=== PATIENT | male | born 1985 | race African-American/Black ===

== ENCOUNTER 2019-06-19 03:04 | Emergency (ER) | payer MEDICAID ==
[~2019-06-19] VITALS: Ht 182.9 cm; Wt 87.0 kg
[~2019-06-19 03:04] MED LIST: ALBU25PO2; SERT50TA PO; TRAZ-213 PO
[2019-06-19 04:58] LABS: EOSINOPHILS % 2.1 % (0.0-5.0); HEMATOCRIT. 44.3 % (42.0-52.0); HEMOGLOBIN. 14.7 g/dL (14.0-18.0); LYMPHOCYTES % 18.1 % (20.0-50.0); MEAN CORPUSCULAR HEMOGLOBIN 28.5 pg (28.0-32.0); MEAN CORPUSCULAR VOLUME 85.6 fL (80.0-94.0); MEAN PLATELET VOLUME 10.4 fl (7.4-10.4); NEUTROPHILS % 70.8 % (40.0-76.0); PLATELET 168 x1000/uL (130-400); RED BLOOD CELL COUNT 5.17 mill/uL (4.7-6.1); RED CELL DISTRIBUTION WIDTH 14.6 % (11.6-14.6)
[2019-06-19 05:02] LABS: CHLORIDE 111 mEq/L (98-107)
[2019-06-19] MEDS ORDERED: SODIUM CHLORIDE 0.9% 1,000 ML IV ONE (05:36)
[2019-06-19 09:30] VITALS: BP 124/98
== END 2019-06-19 10:59 | disposition home or self-care (01) ==
LOC: ER 03:04
DX: R07.89 Other chest pain (principal); J45.909 Unspecified asthma, uncomplicated; F12.10 Cannabis abuse, uncomplicated; Z79.899 Other long term (current) drug therapy
CPT/HCPCS: 36415; 71045; 71275; 80053; 84484; 85025; 85379; 93005; 99284; J7030

== ENCOUNTER 2019-07-13 18:49 | Emergency (ER) | payer MEDICAID ==
[~2019-07-13] VITALS: Ht 182.9 cm; Wt 100.0 kg
[2019-07-14] MEDS ORDERED: HYDROCODONE/ACETAMINOPHEN 5/325MG TABLET PO ONE (00:15)
[2019-07-14 01:15] LABS: BASOPHILS % 0.9 % (0.0-2.0); EOSINOPHILS % 2.2 % (0.0-5.0); HEMATOCRIT. 42.8 % (42.0-52.0); HEMOGLOBIN. 14.5 g/dL (14.0-18.0); LYMPHOCYTES % 16.2 % (20.0-50.0); MEAN CORPUSCULAR HEMOGLOBIN 29.2 pg (28.0-32.0); MONOCYTES % 10.7 % (2.0-8.0); PLATELET 127 x1000/uL (130-400); RED BLOOD CELL COUNT 4.98 mill/uL (4.7-6.1); RED CELL DISTRIBUTION WIDTH 14.9 % (11.6-14.6)
[2019-07-14] MEDS ORDERED: KETOROLAC 15MG/ML VIAL IV ONE (01:15)
[2019-07-14 01:18] LABS: CHLORIDE 104 mEq/L (98-107)
[2019-07-14] MEDS ORDERED: POTASSIUM CHLORIDE 20MEQ TABLET SR PO NR (02:00)
[2019-07-14 02:33] VITALS: BP 149/98
== END 2019-07-14 08:07 | disposition home or self-care (01) ==
LOC: ER 07-14 07:22
DX: M25.571 Pain in right ankle and joints of right foot (principal); J45.909 Unspecified asthma, uncomplicated; F31.9 Bipolar disorder, unspecified; F12.10 Cannabis abuse, uncomplicated; F10.20 Alcohol dependence, uncomplicated; Y90.9 Presence of alcohol in blood, level not specified
CPT/HCPCS: 36415; 73610; 73630; 80053; 85025; 85651; 86140; 96374; 99284; J1885; Z7610

== ENCOUNTER 2019-07-17 18:07 | Emergency (ER) | payer MEDICAID ==
[~2019-07-17] VITALS: Ht 177.8 cm; Wt 81.0 kg
[2019-07-17 19:04] VITALS: BP 133/75
== END 2019-07-17 20:34 | disposition left against medical advice (07) ==
LOC: ER 18:07
DX: M25.561 Pain in right knee (principal); Z53.21 Procedure and treatment not carried out due to patient leaving prior to being seen by health care provider

== ENCOUNTER 2019-07-22 13:33 | Emergency (ER) | payer MEDICAID ==
[~2019-07-22] VITALS: Ht 182.9 cm; Wt 90.0 kg
[2019-07-22] MEDS ORDERED: LORAZEPAM 1MG TABLET PO ONE (15:15)
[2019-07-22] MEDS ORDERED: ONDANSETRON 4MG ODT PO ONE (15:15)
[2019-07-22 17:33] VITALS: BP 159/119
== END 2019-07-22 17:44 | disposition home or self-care (01) ==
LOC: ER 13:33
DX: F10.239 Alcohol dependence with withdrawal, unspecified (principal); F10.229 Alcohol dependence with intoxication, unspecified; F32.9 Major depressive disorder, single episode, unspecified; J45.909 Unspecified asthma, uncomplicated; K76.0 Fatty (change of) liver, not elsewhere classified; F12.10 Cannabis abuse, uncomplicated; Y90.9 Presence of alcohol in blood, level not specified
CPT/HCPCS: 99283; Q0162; Z7610

== ENCOUNTER 2019-08-03 20:23 | Emergency (ER) | payer MEDICAID ==
[~2019-08-03] VITALS: Ht 182.9 cm; Wt 82.0 kg
[2019-08-03 23:10] LABS: BASOPHILS % 1.4 % (0.0-2.0); EOSINOPHILS % 2.7 % (0.0-5.0); HEMATOCRIT. 42.2 % (42.0-52.0); HEMOGLOBIN. 14.2 g/dL (14.0-18.0); LYMPHOCYTES % 20.5 % (20.0-50.0); MEAN CORPUSCULAR HEMOGLOBIN 28.2 pg (28.0-32.0); MEAN CORPUSCULAR VOLUME 83.8 fL (80.0-94.0); MEAN PLATELET VOLUME 8.6 fl (7.4-10.4); MONOCYTES % 7.3 % (2.0-8.0); NEUTROPHILS % 68.1 % (40.0-76.0); PLATELET 178 x1000/uL (130-400); RED BLOOD CELL COUNT 5.03 mill/uL (4.7-6.1); RED CELL DISTRIBUTION WIDTH 15.6 % (11.6-14.6)
[2019-08-03 23:15] LABS: CHLORIDE 109 mEq/L (98-107)
[2019-08-03 23:19] LABS: ETHANOL BLOOD 257 mg/dL
[2019-08-04 00:42] LABS: CLARITY URINE CLEAR (CLEAR); COLOR URINE YELLOW (YELLOW); KETONES URINE TRACE (NEGATIVE); LEUKOCYTE ESTERASE URINE TRACE (NEGATIVE); NITRITE URINE NEGATIVE (NEGATIVE); OCCULT BLOOD URINE NEGATIVE (NEGATIVE); PROTEIN URINE TRACE (NEGATIVE); SPECIFIC GRAVITY URINE 1.008 (1.005-1.030); UROBILINOGEN URINE 0.2 E.U./dL (0.2-1.0)
[2019-08-04 01:10] LABS: *AMPHETAMINES SCREEN URINE NEGATIVE (NEGATIVE); *BARBITURATES SCREEN URINE NEGATIVE (NEGATIVE); *BENZODIAZEPINES SCREEN URINE NEGATIVE (NEGATIVE); *COCAINE SCREEN URINE NEGATIVE (NEGATIVE); METHADONE URINE SCREEN NEGATIVE (NEGATIVE)
[2019-08-04 01:11] LABS: CANNABINOID URINE SCREEN NEGATIVE (NEGATIVE); OPIATES URINE SCREEN NEGATIVE (NEGATIVE); PHENCYCLIDINE URINE SCREEN NEGATIVE (NEGATIVE)
[2019-08-04] MEDS ORDERED: CHLORDIAZEPOXIDE 25MG CAPSULE PO ONE (04:15)
[2019-08-04] MEDS ORDERED: ONDANSETRON 4MG ODT PO STA (13:27)
[2019-08-04] MEDS ORDERED: IBUPROFEN 600MG TABLET PO STA (13:27)
[2019-08-04 17:26] VITALS: BP 137/89
== END 2019-08-04 17:29 | disposition home or self-care (01) ==
LOC: ER 20:23
DX: R45.851 Suicidal ideations (principal); F14.10 Cocaine abuse, uncomplicated; F10.129 Alcohol abuse with intoxication, unspecified; Y90.8 Blood alcohol level of 240 mg/100 ml or more; F12.90 Cannabis use, unspecified, uncomplicated; R00.0 Tachycardia, unspecified; R03.0 Elevated blood-pressure reading, without diagnosis of hypertension; M25.571 Pain in right ankle and joints of right foot; M25.561 Pain in right knee; M79.675 Pain in left toe(s)
CPT/HCPCS: 36415; 80053; 80305; 80320; 81003; 84550; 85025; 93005; 99284; Q0162; Z7610; G0480

== ENCOUNTER 2019-08-09 18:25 | Emergency (ER) | payer MEDICAID ==
[~2019-08-09] VITALS: Ht 177.8 cm; Wt 100.0 kg
[2019-08-09] MEDS ORDERED: KETOROLAC 60MG/2ML VIAL IM ONE (19:45)
[2019-08-09 21:26] VITALS: BP 137/87
== END 2019-08-09 21:29 | disposition home or self-care (01) ==
LOC: ER 18:25
DX: M10.072 Idiopathic gout, left ankle and foot (principal); J45.909 Unspecified asthma, uncomplicated; Z79.899 Other long term (current) drug therapy
CPT/HCPCS: 73630; 96372; 99283; J1885; Z7610

== ENCOUNTER 2019-08-29 21:17 | Emergency (ER) | payer MEDICAID ==
[~2019-08-29] VITALS: Ht 172.7 cm; Wt 82.0 kg
[2019-08-29 23:13] LABS: BASOPHILS % 1.2 % (0.0-2.0); EOSINOPHILS % 4.2 % (0.0-5.0); HEMATOCRIT. 43.5 % (42.0-52.0); HEMOGLOBIN. 14.1 g/dL (14.0-18.0); LYMPHOCYTES % 34.4 % (20.0-50.0); MEAN CORPUSCULAR HEMOGLOBIN 27.4 pg (28.0-32.0); MEAN CORPUSCULAR VOLUME 84.4 fL (80.0-94.0); MEAN PLATELET VOLUME 10.2 fl (7.4-10.4); MONOCYTES % 10.5 % (2.0-8.0); NEUTROPHILS % 49.7 % (40.0-76.0); PLATELET 132 x1000/uL (130-400); RED BLOOD CELL COUNT 5.16 mill/uL (4.7-6.1); RED CELL DISTRIBUTION WIDTH 16.3 % (11.6-14.6)
[2019-08-29] MEDS ORDERED: THIAMINE HCL 100 MG/1 ML 2ML VIAL ONE (23:13)
[2019-08-29] MEDS ORDERED: LORAZEPAM 2MG/ML CPJ IV ONE (23:15)
[2019-08-29] MEDS ORDERED: FOLIC ACID 1 MG, THIAMINE HCL 100 MG, MVI, ADULT NO.1 10 ML in DEXTROSE 5% WATER 1,000 ML IV ONE ×4 (23:15)
[2019-08-29 23:17] LABS: CHLORIDE 113 mEq/L (98-107)
[2019-08-29 23:20] LABS: CLARITY URINE CLEAR (CLEAR); COLOR URINE YELLOW (YELLOW); KETONES URINE NEGATIVE (NEGATIVE); LEUKOCYTE ESTERASE URINE NEGATIVE (NEGATIVE); NITRITE URINE NEGATIVE (NEGATIVE); OCCULT BLOOD URINE NEGATIVE (NEGATIVE); PH URINE 5.5 (4.5-8.0); PROTEIN URINE NEGATIVE (NEGATIVE); SPECIFIC GRAVITY URINE 1.003 (1.005-1.030); UROBILINOGEN URINE 0.2 E.U./dL (0.2-1.0)
[2019-08-29 23:34] LABS: ETHANOL BLOOD 439 mg/dL
[2019-08-29 23:55] LABS: *AMPHETAMINES SCREEN URINE NEGATIVE (NEGATIVE); *BARBITURATES SCREEN URINE NEGATIVE (NEGATIVE); *BENZODIAZEPINES SCREEN URINE NEGATIVE (NEGATIVE); *COCAINE SCREEN URINE PRESUMTIVE POSITIVE (NEGATIVE)
[2019-08-29 23:56] LABS: CANNABINOID URINE SCREEN NEGATIVE (NEGATIVE); METHADONE URINE SCREEN NEGATIVE (NEGATIVE); OPIATES URINE SCREEN NEGATIVE (NEGATIVE); PHENCYCLIDINE URINE SCREEN NEGATIVE (NEGATIVE)
[2019-08-30 06:00] VITALS: BP 110/66
== END 2019-08-30 06:09 | disposition left against medical advice (07) ==
LOC: ER 21:17
DX: F10.129 Alcohol abuse with intoxication, unspecified (principal); R65.10 Systemic inflammatory response syndrome (SIRS) of non-infectious origin without acute organ dysfunction; F14.10 Cocaine abuse, uncomplicated; E83.51 Hypocalcemia; F19.10 Other psychoactive substance abuse, uncomplicated; R00.0 Tachycardia, unspecified; R45.850 Homicidal ideations; R45.6 Violent behavior; R06.82 Tachypnea, not elsewhere classified; R74.0 Nonspecific elevation of levels of transaminase and lactic acid dehydrogenase [LDH]; Y90.8 Blood alcohol level of 240 mg/100 ml or more
CPT/HCPCS: 36415; 71045; 80053; 80305; 80320; 81003; 85025; 93005; 96365; 96375; 99284; J2060; J3411; J3490; J7070; Z7610; G0480

== ENCOUNTER 2019-08-30 15:48 | Emergency (ER) | payer MEDICAID ==
[~2019-08-30] VITALS: Ht 188 cm; Wt 86.0 kg
[2019-08-30 16:15] VITALS: BP 148/101
[2019-08-30] MEDS ORDERED: LEVOFLOXACIN 500MG PREMIX 100 ML IV ONE (16:30)
[2019-08-30] MEDS ORDERED: PIPERACILLIN/TAZ 3.375G PREMIX 50 ML IV ONE (16:30)
[2019-08-30] MEDS ORDERED: SODIUM CHLORIDE 0.9% 1000ML BAG (SEPSIS BOLUS) IV ONE (16:30)
[2019-08-30 16:41] LABS: BG BASE EXCESS 2.5 mmol/L (-2.0-2.0); BG CARBOXYHEMOGLOBIN 0.7 % (0.5-1.5); BG DEOXYHEMOGLOBIN 4.1 % (0.0-5.0); BG FRACTION INSPIRED OXYGEN 21; BG HCO3 ACT 27.5 mmol/L (22.0-26.0); BG METHEMOGLOBIN 0.5 % (0.0-1.5); BG OXYGEN SATURATION 95.9 % (92.0-98.5); BG OXYHEMOGLOBIN 94.7 % (94.0-97.0); BG PH 7.414 (7.350-7.450); BG SAMPLE SITE LEFT RADIAL; BG TOTAL HEMOGLOBIN 15.3 g/dL (12.0-18.0); BG VENT MODE ROOM AIR
[2019-08-30 17:24] LABS: CLARITY URINE CLEAR (CLEAR); COLOR URINE ORANGE (YELLOW); KETONES URINE NEGATIVE (NEGATIVE); LEUKOCYTE ESTERASE URINE NEGATIVE (NEGATIVE); NITRITE URINE NEGATIVE (NEGATIVE); OCCULT BLOOD URINE NEGATIVE (NEGATIVE); PROTEIN URINE TRACE (NEGATIVE); SPECIFIC GRAVITY URINE 1.007 (1.005-1.030); UROBILINOGEN URINE 0.2 E.U./dL (0.2-1.0)
[2019-08-30 18:53] LABS: *AMPHETAMINES SCREEN URINE NEGATIVE (NEGATIVE); *BARBITURATES SCREEN URINE NEGATIVE (NEGATIVE); *BENZODIAZEPINES SCREEN URINE NEGATIVE (NEGATIVE); *COCAINE SCREEN URINE PRESUMTIVE POSITIVE (NEGATIVE); METHADONE URINE SCREEN NEGATIVE (NEGATIVE); OPIATES URINE SCREEN NEGATIVE (NEGATIVE)
[2019-08-30 18:54] LABS: CANNABINOID URINE SCREEN NEGATIVE (NEGATIVE); PHENCYCLIDINE URINE SCREEN NEGATIVE (NEGATIVE)
[2019-08-30 19:05] LABS: BASOPHILS % 0.6 % (0.0-2.0); EOSINOPHILS % 2.5 % (0.0-5.0); LYMPHOCYTES % 26.2 % (20.0-50.0); MEAN CORPUSCULAR HEMOGLOBIN 28.2 pg (28.0-32.0); MEAN CORPUSCULAR VOLUME 85.1 fL (80.0-94.0); MEAN PLATELET VOLUME 9.6 fl (7.4-10.4); MONOCYTES % 7.7 % (2.0-8.0); PLATELET 92 x1000/uL (130-400); RED CELL DISTRIBUTION WIDTH 15.9 % (11.6-14.6)
[2019-08-30 19:12] LABS: HEMOGLOBIN. 10.2 g/dL (14.0-18.0)
[2019-08-30 19:13] LABS: HEMATOCRIT. 30.6 % (42.0-52.0)
[2019-08-30 19:14] LABS: INR 1.2; PROTHROMBIN TIME 11.9 sec (9.6-11.0)
== END 2019-08-30 19:22 | disposition left against medical advice (07) ==
LOC: ER 15:57 → EDBEDREQSVC 17:25 → EDBEDREQ 17:25 → ER 19:22 → CANBEDREQ 22:56
DX: G93.40 Encephalopathy, unspecified (principal); T68.XXXA Hypothermia, initial encounter; F31.9 Bipolar disorder, unspecified; J45.909 Unspecified asthma, uncomplicated
CPT/HCPCS: 36415; 36600; 80305; 80329; 81003; 82375; 82805; 82962; 83605; 85025; 85610; 85730; 86850; 86900; 86901; 87040; 87086; 93005; 96360; 99284; J7030; Z7610

== ENCOUNTER 2019-08-31 13:33 | Emergency (ER) | payer MEDICAID ==
[~2019-08-31] VITALS: Ht 180.3 cm; Wt 100.0 kg
[~2019-08-31 13:33] MED LIST changes: -TRAZ-213 PO; +TRAZ-252 PO
[2019-08-31] MEDS ORDERED: OLANZAPINE 5MG TABLET ODT PO ONE (17:45)
[2019-08-31] MEDS ORDERED: LORAZEPAM 1MG TABLET PO ONE (17:45)
[2019-08-31 18:33] LABS: BASOPHILS % 0.9 % (0.0-2.0); CHLORIDE 105 mEq/L (98-107); EOSINOPHILS % 1.3 % (0.0-5.0); HEMATOCRIT. 42.7 % (42.0-52.0); HEMOGLOBIN. 14.2 g/dL (14.0-18.0); LYMPHOCYTES % 18.7 % (20.0-50.0); MEAN CORPUSCULAR HEMOGLOBIN 27.6 pg (28.0-32.0); MEAN CORPUSCULAR VOLUME 83.2 fL (80.0-94.0); MEAN PLATELET VOLUME 9.7 fl (7.4-10.4); MONOCYTES % 7.4 % (2.0-8.0); NEUTROPHILS % 71.7 % (40.0-76.0); PLATELET 147 x1000/uL (130-400); RED BLOOD CELL COUNT 5.14 mill/uL (4.7-6.1); RED CELL DISTRIBUTION WIDTH 15.8 % (11.6-14.6)
[2019-08-31 18:34] LABS: *AMPHETAMINES SCREEN URINE NEGATIVE (NEGATIVE); *BARBITURATES SCREEN URINE NEGATIVE (NEGATIVE); *BENZODIAZEPINES SCREEN URINE NEGATIVE (NEGATIVE); CANNABINOID URINE SCREEN NEGATIVE (NEGATIVE); METHADONE URINE SCREEN NEGATIVE (NEGATIVE); OPIATES URINE SCREEN NEGATIVE (NEGATIVE); PHENCYCLIDINE URINE SCREEN NEGATIVE (NEGATIVE)
[2019-08-31 18:35] LABS: *COCAINE SCREEN URINE PRESUMTIVE POSITIVE (NEGATIVE)
[2019-08-31 18:40] LABS: ETHANOL BLOOD < 10 mg/dL
[2019-08-31] MEDS ORDERED: POTASSIUM CHLORIDE 20MEQ TABLET SR PO ONE ×2 (18:45→23:00)
[2019-09-02] MEDS ORDERED: LORAZEPAM 1MG TABLET PO ONE (17:00)
[2019-09-02] MEDS ORDERED: HYDRALAZINE HCL 10MG TABLET PO ONE (19:00)
[2019-09-02] MEDS ORDERED: CLONIDINE 0.2MG TABLET PO ONE (20:30)
[2019-09-02 22:53] VITALS: BP 135/94
== END 2019-09-03 00:54 ==
LOC: ER 13:33
DX: F14.150 Cocaine abuse with cocaine-induced psychotic disorder with delusions (principal); F16.129 Hallucinogen abuse with intoxication, unspecified; R45.851 Suicidal ideations; R03.0 Elevated blood-pressure reading, without diagnosis of hypertension; Z75.1 Person awaiting admission to adequate facility elsewhere
CPT/HCPCS: 36415; 80053; 80305; 80307; 80320; 80329; 85025; 99284; G0480

== ENCOUNTER 2019-09-14 16:00 | Emergency (ER) | payer MEDICAID ==
[~2019-09-14] VITALS: Ht 182.9 cm; Wt 100.0 kg
[2019-09-14 18:43] LABS: CLARITY URINE CLEAR (CLEAR); COLOR URINE YELLOW (YELLOW); KETONES URINE 1+ (NEGATIVE); LEUKOCYTE ESTERASE URINE TRACE (NEGATIVE); NITRITE URINE NEGATIVE (NEGATIVE); OCCULT BLOOD URINE 2+ (NEGATIVE); PROTEIN URINE 1+ (NEGATIVE); SPECIFIC GRAVITY URINE 1.007 (1.005-1.030); UROBILINOGEN URINE 0.2 E.U./dL (0.2-1.0)
[2019-09-14 18:59] LABS: *AMPHETAMINES SCREEN URINE NEGATIVE (NEGATIVE); *BARBITURATES SCREEN URINE NEGATIVE (NEGATIVE)
[2019-09-14 19:00] LABS: *BENZODIAZEPINES SCREEN URINE NEGATIVE (NEGATIVE); *COCAINE SCREEN URINE NEGATIVE (NEGATIVE); CANNABINOID URINE SCREEN NEGATIVE (NEGATIVE); METHADONE URINE SCREEN NEGATIVE (NEGATIVE); OPIATES URINE SCREEN NEGATIVE (NEGATIVE); PHENCYCLIDINE URINE SCREEN NEGATIVE (NEGATIVE)
[2019-09-14 19:37] LABS: BASOPHILS % 0.6 % (0.0-2.0); EOSINOPHILS % 1.9 % (0.0-5.0); HEMATOCRIT. 49.2 % (42.0-52.0); HEMOGLOBIN. 16.2 g/dL (14.0-18.0); LYMPHOCYTES % 28.8 % (20.0-50.0); MEAN CORPUSCULAR HEMOGLOBIN 27.1 pg (28.0-32.0); MEAN CORPUSCULAR VOLUME 82.1 fL (80.0-94.0); MEAN PLATELET VOLUME 10.4 fl (7.4-10.4); MONOCYTES % 5.5 % (2.0-8.0); NEUTROPHILS % 63.2 % (40.0-76.0); PLATELET 320 x1000/uL (130-400); RED BLOOD CELL COUNT 5.99 mill/uL (4.7-6.1); RED CELL DISTRIBUTION WIDTH 15.7 % (11.6-14.6)
[2019-09-14 19:43] LABS: CHLORIDE 108 mEq/L (98-107)
[2019-09-14 19:48] LABS: ETHANOL BLOOD 221 mg/dL
[2019-09-14] MEDS ORDERED: MAGNESIUM/ALUMINUM HYDROXIDE/SIMETHICONE 30ML UDC PO ONE (20:00)
[2019-09-14] MEDS ORDERED: VISCOUS LIDOCAINE 2% 15 ML UDC PO ONE (20:00)
[2019-09-15] MEDS ORDERED: ONDANSETRON 4MG ODT PO ONE (00:45)
[2019-09-15] MEDS ORDERED: ACETAMINOPHEN 325MG TABLET PO ONE (03:30)
[2019-09-15 03:58] LABS: CHLORIDE 106 mEq/L (98-107)
[2019-09-15 07:25] VITALS: BP 148/97
[2019-09-15] MEDS ORDERED: SODIUM CHLORIDE 0.9% 1,000 ML IV ONE (07:30)
[2019-09-15] MEDS ORDERED: ONDANSETRON HCL 4MG TABLET PO ONE (07:30)
[2019-09-15 07:46] LABS: ETHANOL BLOOD < 10 mg/dL
[2019-09-15] MEDS ORDERED: CEPHALEXIN 250MG CAPSULE PO SCH (09:00)
[2019-09-18 07:10] LABS: NEISSERIA GONORRHOEAE NAA Negative (Negative)
== END 2019-09-15 15:01 ==
LOC: ER 16:00
DX: R45.851 Suicidal ideations (principal); F10.129 Alcohol abuse with intoxication, unspecified; J45.909 Unspecified asthma, uncomplicated; Y90.7 Blood alcohol level of 200-239 mg/100 ml
CPT/HCPCS: 36415; 74021; 80048; 80053; 80305; 80307; 80320; 80329; 81003; 83690; 84450; 84460; 85025; 87491; 87591; 99285; J7030; Q0162; G0480

== ENCOUNTER 2020-02-27 13:55 | Emergency (ER) | payer MEDICAID ==
[~2020-02-27] VITALS: Ht 177.8 cm; Wt 114.0 kg
[2020-02-27] MEDS ORDERED: celexa (14:12)
[2020-02-27] MEDS ORDERED: HALOPERIDOL LACTATE 5MG/ML VIAL IM STA (14:44)
[2020-02-27] MEDS ORDERED: LORAZEPAM 2MG/ML CPJ IM STA (14:44)
[2020-02-27] MEDS ORDERED: LIDOCAINE 1%/EPI 1:100,000 10 ML VIAL IJ ONE (16:30)
[2020-02-27] MEDS ORDERED: BACITRACIN ZINC OINT UDPKT TOP ONE (16:30)
[2020-02-27] MEDS ORDERED: TETANUS, DIPHTHERIA, PERTUSSIS VAC/PF 0.5ML (>7YR OLD) IM ONE (16:30)
[2020-02-27 16:31] LABS: BASOPHILS % 0.7 % (0.0-2.0); EOSINOPHILS % 1.3 % (0.0-5.0); HEMATOCRIT. 40.7 % (42.0-52.0); HEMOGLOBIN. 13.8 g/dL (14.0-18.0); LYMPHOCYTES % 14.1 % (20.0-50.0); MEAN CORPUSCULAR VOLUME 82.9 fL (80.0-94.0); MONOCYTES % 5.8 % (2.0-8.0); NEUTROPHILS % 78.1 % (40.0-76.0); RED BLOOD CELL COUNT 4.91 mill/uL (4.7-6.1); RED CELL DISTRIBUTION WIDTH 15.5 % (11.6-14.6)
[2020-02-27 16:39] LABS: CHLORIDE 114 mEq/L (98-107)
[2020-02-27 17:30] LABS: ETHANOL BLOOD 296 mg/dL
[2020-02-27] MEDS ORDERED: LIDOCAINE HCL/EPINEPHRINE 1%-EPI 1:100,000 20 ML VIAL INFIL NR (18:45)
[2020-02-27 20:20] LABS: MEAN PLATELET VOLUME 10.1 fl (7.4-10.4); PLATELET 97 x1000/uL (130-400)
[2020-02-27 22:53] LABS: CLARITY URINE CLEAR (CLEAR); COLOR URINE YELLOW (YELLOW); KETONES URINE NEGATIVE (NEGATIVE); LEUKOCYTE ESTERASE URINE NEGATIVE (NEGATIVE); NITRITE URINE NEGATIVE (NEGATIVE); OCCULT BLOOD URINE NEGATIVE (NEGATIVE); PROTEIN URINE NEGATIVE (NEGATIVE); SPECIFIC GRAVITY URINE 1.009 (1.005-1.030); UROBILINOGEN URINE 0.2 E.U./dL (0.2-1.0)
[2020-02-27 23:06] LABS: *AMPHETAMINES SCREEN URINE NEGATIVE (NEGATIVE); *BARBITURATES SCREEN URINE NEGATIVE (NEGATIVE); *BENZODIAZEPINES SCREEN URINE NEGATIVE (NEGATIVE); *COCAINE SCREEN URINE NEGATIVE (NEGATIVE)
[2020-02-27 23:07] LABS: CANNABINOID URINE SCREEN NEGATIVE (NEGATIVE); METHADONE URINE SCREEN NEGATIVE (NEGATIVE); OPIATES URINE SCREEN NEGATIVE (NEGATIVE); PHENCYCLIDINE URINE SCREEN NEGATIVE (NEGATIVE)
[2020-02-28] MEDS ORDERED: ALPRAZOLAM 0.5 MG TABLET PO ONE (12:15)
[2020-02-28] MEDS ORDERED: ACETAMINOPHEN 325MG TABLET PO ONE (18:30)
[2020-02-28] MEDS ORDERED: HYDROXYZINE 25MG TABLET PO PRN (18:45)
[2020-02-28] MEDS ORDERED: QUETIAPINE FUMARATE 50MG TABLET PO PRN (18:45)
[2020-02-28] MEDS ORDERED: TRAZODONE HCL 50MG TABLET PO SCH (21:00)
[2020-02-28] MEDS: CITALOPRAM HYDROBROMIDE 10MG TABLET PO SCH (21:27)
[2020-02-29 09:20] VITALS: BP 144/86
[2020-02-29] MEDS: CITALOPRAM HYDROBROMIDE 10MG TABLET PO SCH (09:23)
== END 2020-02-29 09:54 | disposition home or self-care (01) ==
LOC: ER 13:59
DX: S01.01XA Laceration without foreign body of scalp, initial encounter (principal); S01.81XA Laceration without foreign body of other part of head, initial encounter; F10.229 Alcohol dependence with intoxication, unspecified; F31.9 Bipolar disorder, unspecified; R45.851 Suicidal ideations; Z78.1 Physical restraint status; Y90.8 Blood alcohol level of 240 mg/100 ml or more; Z75.1 Person awaiting admission to adequate facility elsewhere; Y04.0XXA Assault by unarmed brawl or fight, initial encounter; Y07.410 Brother, perpetrator of maltreatment and neglect; Y93.89 Activity, other specified; Y92.018 Other place in single-family (private) house as the place of occurrence of the external cause
CPT/HCPCS: 12002; 36415; 70450; 80053; 80305; 80307; 80320; 80329; 81003; 85025; 90715; 96372; 99285; J1630; J2060; J3490; Z7610; G0480

== ENCOUNTER 2020-03-06 14:48 | Emergency (ER) | payer MEDICAID ==
[~2020-03-06] VITALS: Ht 182.9 cm; Wt 82.0 kg
[~2020-03-06 14:48] MED LIST changes: +celexa
[2020-03-06 14:58] VITALS: BP 140/92
[2020-03-06] MEDS ORDERED: CEPHALEXIN 250MG CAPSULE PO ONE (16:00)
== END 2020-03-06 16:01 | disposition home or self-care (01) ==
LOC: ER 14:48
DX: S01.81XD Laceration without foreign body of other part of head, subsequent encounter (principal); X58.XXXD Exposure to other specified factors, subsequent encounter
CPT/HCPCS: 99282; 99283

== ENCOUNTER 2020-03-20 04:45 | Emergency (ER) | payer MEDICAID ==
[~2020-03-20] VITALS: Ht 182.9 cm; Wt 87.0 kg
[2020-03-20 06:12] LABS: BASOPHILS % 1.2 % (0.0-2.0); EOSINOPHILS % 0.1 % (0.0-5.0); HEMATOCRIT. 39.7 % (42.0-52.0); HEMOGLOBIN. 13.8 g/dL (14.0-18.0); LYMPHOCYTES % 17.2 % (20.0-50.0); MEAN CORPUSCULAR HEMOGLOBIN 28.4 pg (28.0-32.0); MEAN CORPUSCULAR VOLUME 81.8 fL (80.0-94.0); MEAN PLATELET VOLUME 9.1 fl (7.4-10.4); NEUTROPHILS % 72.5 % (40.0-76.0); PLATELET 216 x1000/uL (130-400); RED BLOOD CELL COUNT 4.85 mill/uL (4.7-6.1); RED CELL DISTRIBUTION WIDTH 15.7 % (11.6-14.6)
[2020-03-20 06:18] LABS: CHLORIDE 103 mEq/L (98-107)
[2020-03-20 06:23] LABS: ETHANOL BLOOD 210 mg/dL
[2020-03-20] MEDS: CITALOPRAM HYDROBROMIDE 10MG TABLET PO SCH (09:37)
[2020-03-20 12:42] LABS: CLARITY URINE CLEAR (CLEAR); COLOR URINE YELLOW (YELLOW); KETONES URINE 4+ (NEGATIVE); LEUKOCYTE ESTERASE URINE 1+ (NEGATIVE); NITRITE URINE NEGATIVE (NEGATIVE); OCCULT BLOOD URINE NEGATIVE (NEGATIVE); PH URINE 5.5 (4.5-8.0); PROTEIN URINE 2+ (NEGATIVE); SPECIFIC GRAVITY URINE 1.013 (1.005-1.030); UROBILINOGEN URINE 0.2 E.U./dL (0.2-1.0)
[2020-03-20 12:50] LABS: *AMPHETAMINES SCREEN URINE PRESUMTIVE POSITIVE (NEGATIVE); *BARBITURATES SCREEN URINE NEGATIVE (NEGATIVE); *BENZODIAZEPINES SCREEN URINE NEGATIVE (NEGATIVE); *COCAINE SCREEN URINE NEGATIVE (NEGATIVE)
[2020-03-20 12:51] LABS: CANNABINOID URINE SCREEN NEGATIVE (NEGATIVE); METHADONE URINE SCREEN NEGATIVE (NEGATIVE); OPIATES URINE SCREEN NEGATIVE (NEGATIVE); PHENCYCLIDINE URINE SCREEN NEGATIVE (NEGATIVE)
[2020-03-20] MEDS ORDERED: CHLORDIAZEPOXIDE 25MG CAPSULE PO ONE (13:00)
[2020-03-20] MEDS ORDERED: LORAZEPAM 0.5MG TABLET PO ONE (13:00)
[2020-03-20] MEDS ORDERED: LORAZEPAM 1MG TABLET PO ONE (18:00)
[2020-03-20] MEDS: TRAZODONE HCL 50MG TABLET PO SCH (21:13)
[2020-03-21] MEDS ORDERED: LORAZEPAM 1MG TABLET PO PRN (05:45)
[2020-03-21] MEDS: FOLIC ACID 1MG TABLET PO SCH (12:28)
[2020-03-21] MEDS: THIAMINE HCL 100MG TABLET PO SCH (12:28)
[2020-03-21] MEDS: CITALOPRAM HYDROBROMIDE 10MG TABLET PO SCH (13:26)
[2020-03-21] MEDS: TRAZODONE HCL 50MG TABLET PO SCH (21:33)
[2020-03-22] MEDS ORDERED: CITALOPRAM HYDROBROMIDE 10MG TABLET PO ONE (07:15)
[2020-03-22] MEDS: THIAMINE HCL 100MG TABLET PO SCH (08:26)
[2020-03-22] MEDS: FOLIC ACID 1MG TABLET PO SCH (08:26)
[2020-03-22 10:30] VITALS: BP 139/84
== END 2020-03-22 10:50 | disposition home or self-care (01) ==
LOC: ER 04:45
DX: R45.851 Suicidal ideations (principal); F10.229 Alcohol dependence with intoxication, unspecified; Y90.7 Blood alcohol level of 200-239 mg/100 ml; F41.9 Anxiety disorder, unspecified; J45.909 Unspecified asthma, uncomplicated; F31.9 Bipolar disorder, unspecified; I10 Essential (primary) hypertension; F17.290 Nicotine dependence, other tobacco product, uncomplicated; Z79.899 Other long term (current) drug therapy
CPT/HCPCS: 36415; 80053; 80305; 80307; 80320; 80329; 81003; 85025; 99285; G0480

== ENCOUNTER 2020-04-05 01:03 | Emergency (ER) | payer MEDICAID ==
[~2020-04-05] VITALS: Ht 172.7 cm; Wt 83.0 kg
[2020-04-05 03:02] LABS: BASOPHILS % 0.3 % (0.0-2.0); EOSINOPHILS % 2.9 % (0.0-5.0); HEMATOCRIT. 40.7 % (42.0-52.0); HEMOGLOBIN. 13.6 g/dL (14.0-18.0); LYMPHOCYTES % 28.1 % (20.0-50.0); MEAN CORPUSCULAR HEMOGLOBIN 27.6 pg (28.0-32.0); MEAN CORPUSCULAR VOLUME 82.4 fL (80.0-94.0); MEAN PLATELET VOLUME 10.3 fl (7.4-10.4); MONOCYTES % 7.4 % (2.0-8.0); NEUTROPHILS % 61.3 % (40.0-76.0); PLATELET 111 x1000/uL (130-400); RED BLOOD CELL COUNT 4.94 mill/uL (4.7-6.1); RED CELL DISTRIBUTION WIDTH 15.7 % (11.6-14.6)
[2020-04-05 03:14] LABS: CLARITY URINE CLEAR (CLEAR); COLOR URINE YELLOW (YELLOW); KETONES URINE NEGATIVE (NEGATIVE); LEUKOCYTE ESTERASE URINE NEGATIVE (NEGATIVE); NITRITE URINE NEGATIVE (NEGATIVE); OCCULT BLOOD URINE NEGATIVE (NEGATIVE); PROTEIN URINE TRACE (NEGATIVE); SPECIFIC GRAVITY URINE 1.011 (1.005-1.030); UROBILINOGEN URINE 0.2 E.U./dL (0.2-1.0)
[2020-04-05 03:16] LABS: CHLORIDE 111 mEq/L (98-107)
[2020-04-05 03:24] LABS: *AMPHETAMINES SCREEN URINE NEGATIVE (NEGATIVE); *COCAINE SCREEN URINE NEGATIVE (NEGATIVE); CANNABINOID URINE SCREEN NEGATIVE (NEGATIVE); METHADONE URINE SCREEN NEGATIVE (NEGATIVE); OPIATES URINE SCREEN NEGATIVE (NEGATIVE); PHENCYCLIDINE URINE SCREEN NEGATIVE (NEGATIVE)
[2020-04-05 03:25] LABS: *BARBITURATES SCREEN URINE NEGATIVE (NEGATIVE); *BENZODIAZEPINES SCREEN URINE NEGATIVE (NEGATIVE)
[2020-04-05 03:44] LABS: ETHANOL BLOOD 422 mg/dL
[2020-04-05 07:36] VITALS: BP 121/74
== END 2020-04-05 07:46 | disposition home or self-care (01) ==
LOC: ER 01:03
DX: R45.851 Suicidal ideations (principal); Z79.899 Other long term (current) drug therapy
CPT/HCPCS: 36415; 80053; 80305; 80307; 80320; 80329; 81003; 85025; 99285; G0480

== ENCOUNTER 2020-04-05 20:47 | Emergency (ER) | payer MEDICAID ==
[~2020-04-05] VITALS: Ht 182.9 cm; Wt 102.0 kg
[2020-04-05] MEDS ORDERED: SODIUM CHLORIDE 0.9% 1,000 ML IV ONE (21:37)
[2020-04-05] MEDS ORDERED: TETRACAINE 0.5% OPHTH DROPS 4ML LEFTEYE ONE (21:45)
[2020-04-05] MEDS ORDERED: FLUORESCEIN SODIUM 1MG/STRIP LEFTEYE ONE (21:45)
[2020-04-05 21:54] LABS: CLARITY URINE CLEAR (CLEAR); COLOR URINE YELLOW (YELLOW); KETONES URINE NEGATIVE (NEGATIVE); LEUKOCYTE ESTERASE URINE NEGATIVE (NEGATIVE); NITRITE URINE NEGATIVE (NEGATIVE); OCCULT BLOOD URINE NEGATIVE (NEGATIVE); PROTEIN URINE 2+ (NEGATIVE); SPECIFIC GRAVITY URINE 1.015 (1.005-1.030); UROBILINOGEN URINE 0.2 E.U./dL (0.2-1.0)
[2020-04-05 22:03] LABS: *AMPHETAMINES SCREEN URINE NEGATIVE (NEGATIVE); *BARBITURATES SCREEN URINE NEGATIVE (NEGATIVE); *BENZODIAZEPINES SCREEN URINE NEGATIVE (NEGATIVE); *COCAINE SCREEN URINE NEGATIVE (NEGATIVE); METHADONE URINE SCREEN NEGATIVE (NEGATIVE); OPIATES URINE SCREEN NEGATIVE (NEGATIVE)
[2020-04-05 22:03] LABS: BASOPHILS % 1.3 % (0.0-2.0); EOSINOPHILS % 2.3 % (0.0-5.0); HEMATOCRIT. 40.5 % (42.0-52.0); HEMOGLOBIN. 13.8 g/dL (14.0-18.0); LYMPHOCYTES % 29.8 % (20.0-50.0); MEAN CORPUSCULAR HEMOGLOBIN 28.1 pg (28.0-32.0); MEAN CORPUSCULAR VOLUME 82.6 fL (80.0-94.0); MEAN PLATELET VOLUME 9.3 fl (7.4-10.4); MONOCYTES % 6.9 % (2.0-8.0); NEUTROPHILS % 59.7 % (40.0-76.0); PLATELET 136 x1000/uL (130-400); RED BLOOD CELL COUNT 4.91 mill/uL (4.7-6.1); RED CELL DISTRIBUTION WIDTH 16.2 % (11.6-14.6)
[2020-04-05 22:04] LABS: CANNABINOID URINE SCREEN NEGATIVE (NEGATIVE); PHENCYCLIDINE URINE SCREEN NEGATIVE (NEGATIVE)
[2020-04-05 22:06] LABS: CHLORIDE 109 mEq/L (98-107)
[2020-04-05 22:20] LABS: ETHANOL BLOOD 528 mg/dL
[2020-04-06] MEDS ORDERED: SODIUM CHLORIDE 0.9% 1,000 ML IV ONE (00:35)
[2020-04-06] MEDS ORDERED: CHLORDIAZEPOXIDE 25MG CAPSULE PO ONE ×2 (08:15→16:30)
[2020-04-06] MEDS ORDERED: ONDANSETRON 4MG ODT PO ONE (16:30)
[2020-04-06] MEDS ORDERED: QUETIAPINE FUMARATE 50MG TABLET PO NR (23:00)
[2020-04-07 05:39] LABS: ETHANOL BLOOD < 10 mg/dL
[2020-04-07] MEDS ORDERED: CHLORDIAZEPOXIDE 25MG CAPSULE PO ONE (09:00)
[2020-04-07] MEDS ORDERED: QUETIAPINE FUMARATE 50MG TABLET PO SCH (09:00)
[2020-04-07 09:20] LABS: CHLORIDE 108 mEq/L (98-107)
[2020-04-07 09:24] LABS: ETHANOL BLOOD < 10 mg/dL
[2020-04-07] MEDS ORDERED: LORAZEPAM 1MG TABLET PO ONE ×2 (14:15→16:45)
[2020-04-07] MEDS ORDERED: ACETAMINOPHEN 325MG TABLET PO ONE (20:15)
[2020-04-07 23:11] VITALS: BP 146/103
== END 2020-04-07 23:14 ==
LOC: ER 20:47
DX: F32.9 Major depressive disorder, single episode, unspecified (principal); F91.8 Other conduct disorders; E11.65 Type 2 diabetes mellitus with hyperglycemia; F10.129 Alcohol abuse with intoxication, unspecified; R45.851 Suicidal ideations; H57.12 Ocular pain, left eye; J45.909 Unspecified asthma, uncomplicated; F17.200 Nicotine dependence, unspecified, uncomplicated; F12.10 Cannabis abuse, uncomplicated; Z79.899 Other long term (current) drug therapy; Y90.8 Blood alcohol level of 240 mg/100 ml or more
CPT/HCPCS: 36415; 70450; 71045; 80053; 80305; 80320; 81003; 82947; 82962; 85025; 93005; 99285; J7030; Q0162; Z7610; G0480

== ENCOUNTER 2020-05-26 15:53 | Inpatient (IN) | payer MEDICAID ==
[2020-05-25 22:00] VITALS: BP 146/107
[~2020-05-26] VITALS: Ht 188 cm; Wt 89.6 kg
[2020-05-26] MEDS ORDERED: SODIUM CHLORIDE 0.9% 1,000 ML IV ONE (16:14)
[2020-05-26 16:45] LABS: BASOPHILS % 0.6 % (0.0-2.0); EOSINOPHILS % 0.6 % (0.0-5.0); HEMOGLOBIN. 15.3 g/dL (14.0-18.0); MEAN CORPUSCULAR HEMOGLOBIN 26.6 pg (28.0-32.0); MEAN CORPUSCULAR VOLUME 81.7 fL (80.0-94.0); MEAN PLATELET VOLUME 10.4 fl (7.4-10.4); MONOCYTES % 5.7 % (2.0-8.0); NEUTROPHILS % 83.1 % (40.0-76.0); PLATELET 149 x1000/uL (130-400); RED BLOOD CELL COUNT 5.76 mill/uL (4.7-6.1); RED CELL DISTRIBUTION WIDTH 16.4 % (11.6-14.6)
[2020-05-26 16:51] LABS: CHLORIDE 108 mEq/L (98-107)
[2020-05-26 16:54] LABS: PROTHROMBIN TIME 10.9 sec (9.6-11.0)
[2020-05-26] MEDS ORDERED: MORPHINE SULFATE 4 MG/ML CPJ (NOT FOR IM USE) IV ONE (18:00)
[2020-05-26] MEDS ORDERED: HEPARIN 25,000 UNITS PREMIX 250 ML IV ONE (18:30)
[2020-05-26] MEDS ORDERED: HEPARIN 5000 UNITS/ML VIAL IV ONE (18:30)
[2020-05-26] MEDS ORDERED: IOHEXOL-350 100 ML BOTTLE ONE (19:20)
[2020-05-26] MEDS ORDERED: HEPARIN BOLUS PRN aPTT <30 IV (23:00)
[2020-05-26] MEDS ORDERED: ONDANSETRON HCL 4MG/2ML INJ IV PRN (23:30)
[2020-05-26] MEDS ORDERED: AMLODIPINE 10MG TABLET PO SCH (23:30)
[2020-05-27] VITALS (21 sets, daily range): BP systolic 105–151; BP diastolic 65–158
[2020-05-27] MEDS: HYDROCODONE/ACETAMINOPHEN 10/325MG TABLET PO PRN ×3 (00:14→15:27)
[2020-05-27] MEDS: HEPARIN 25,000 UNITS PREMIX 250 ML IV SCH ×2 (02:50→15:31)
[2020-05-27] MEDS: HEPARIN BOLUS PRN aPTT 30-44 IV ×2 (02:50→09:08)
[2020-05-27 06:17] LABS: CHLORIDE 106 mEq/L (98-107)
[2020-05-27 06:35] LABS: HEMATOCRIT 46.4 % (42.0-52.0); HEMOGLOBIN 15.2 g/dL (14.0-18.0); MEAN CORPUSCULAR HEMOGLOBIN 26.8 pg (28.0-32.0); RED BLOOD CELL COUNT 5.66 mill/uL (4.7-6.1); RED CELL DISTRIBUTION WIDTH 16.2 % (11.6-14.6)
[2020-05-27] MEDS: FAMOTIDINE 20MG TABLET PO SCH ×2 (08:57→21:06)
[2020-05-27 10:11] LABS: PLATELET 146 x1000/uL (130-400)
[2020-05-27] MEDS ORDERED: IPRATROPIUM BROMIDE (0.02%) 0.5MG/2.5ML NEB HHN PRN (15:00)
[2020-05-27] MEDS: IPRATROPIUM BROMIDE (0.02%) 0.5MG/2.5ML NEB HHN SCH (16:00)
[2020-05-27 16:50] LABS: *AMPHETAMINES SCREEN URINE NEGATIVE (NEGATIVE)
[2020-05-27 16:51] LABS: *BARBITURATES SCREEN URINE NEGATIVE (NEGATIVE); *COCAINE SCREEN URINE NEGATIVE (NEGATIVE); CANNABINOID URINE SCREEN NEGATIVE (NEGATIVE); METHADONE URINE SCREEN NEGATIVE (NEGATIVE); OPIATES URINE SCREEN PRESUMTIVE POSITIVE (NEGATIVE); PHENCYCLIDINE URINE SCREEN NEGATIVE (NEGATIVE)
[2020-05-27 16:54] LABS: *BENZODIAZEPINES SCREEN URINE NEGATIVE (NEGATIVE)
[2020-05-27 17:04] LABS: CLARITY URINE CLEAR (CLEAR); COLOR URINE YELLOW (YELLOW); PH URINE 5.5 (4.5-8.0); PROTEIN URINE NEGATIVE (NEGATIVE); SPECIFIC GRAVITY URINE 1.011 (1.005-1.030)
[2020-05-27 17:05] LABS: KETONES URINE TRACE (NEGATIVE); LEUKOCYTE ESTERASE URINE NEGATIVE (NEGATIVE); NITRITE URINE NEGATIVE (NEGATIVE); OCCULT BLOOD URINE NEGATIVE (NEGATIVE); UROBILINOGEN URINE 0.2 E.U./dL (0.2-1.0)
[2020-05-27] MEDS: TRAZODONE HCL 50MG TABLET PO SCH (21:06)
[2020-05-28] VITALS (30 sets, daily range): BP systolic 100–150; BP diastolic 57–100
[2020-05-28] MEDS: HEPARIN BOLUS PRN aPTT 30-44 IV (03:05)
[2020-05-28 06:16] LABS: BASOPHILS % 0.8 % (0.0-2.0); EOSINOPHILS % 2.4 % (0.0-5.0); HEMATOCRIT. 46.1 % (42.0-52.0); HEMOGLOBIN. 15.1 g/dL (14.0-18.0); LYMPHOCYTES % 17.1 % (20.0-50.0); MEAN CORPUSCULAR HEMOGLOBIN 26.8 pg (28.0-32.0); MEAN CORPUSCULAR VOLUME 82.1 fL (80.0-94.0); MEAN PLATELET VOLUME 11.2 fl (7.4-10.4); MONOCYTES % 5.5 % (2.0-8.0); NEUTROPHILS % 74.2 % (40.0-76.0); PLATELET 121 x1000/uL (130-400); RED BLOOD CELL COUNT 5.61 mill/uL (4.7-6.1); RED CELL DISTRIBUTION WIDTH 16.4 % (11.6-14.6)
[2020-05-28 06:21] LABS: CHLORIDE 105 mEq/L (98-107)
[2020-05-28] MEDS: FAMOTIDINE 20MG TABLET PO SCH ×2 (08:58→21:31)
[2020-05-28] MEDS: IPRATROPIUM BROMIDE (0.02%) 0.5MG/2.5ML NEB HHN SCH ×3 (09:45→20:45)
[2020-05-28] MEDS: CITALOPRAM HYDROBROMIDE 10MG TABLET PO SCH (12:49)
[2020-05-28] MEDS: HEPARIN 25,000 UNITS PREMIX 250 ML IV SCH (13:14)
[2020-05-28] MEDS: TRAZODONE HCL 50MG TABLET PO SCH (21:31)
[2020-05-29] VITALS (24 sets, daily range): BP systolic 100–149; BP diastolic 33–105
[2020-05-29] MEDS: HEPARIN BOLUS PRN aPTT 30-44 IV ×2 (00:28→21:28)
[2020-05-29] MEDS: IPRATROPIUM BROMIDE (0.02%) 0.5MG/2.5ML NEB HHN SCH ×4 (02:33→20:16)
[2020-05-29] MEDS: HEPARIN 25,000 UNITS PREMIX 250 ML IV SCH (04:50)
[2020-05-29] MEDS: HYDROCODONE/ACETAMINOPHEN 10/325MG TABLET PO PRN (05:36)
[2020-05-29 06:23] LABS: BASOPHILS % 0.5 % (0.0-2.0); EOSINOPHILS % 2.1 % (0.0-5.0); HEMATOCRIT. 45.3 % (42.0-52.0); HEMOGLOBIN. 15.1 g/dL (14.0-18.0); LYMPHOCYTES % 13.7 % (20.0-50.0); MEAN CORPUSCULAR HEMOGLOBIN 27.3 pg (28.0-32.0); MEAN CORPUSCULAR VOLUME 81.9 fL (80.0-94.0); MEAN PLATELET VOLUME 10.5 fl (7.4-10.4); MONOCYTES % 4.9 % (2.0-8.0); NEUTROPHILS % 78.8 % (40.0-76.0); PLATELET 87 x1000/uL (130-400); RED BLOOD CELL COUNT 5.53 mill/uL (4.7-6.1); RED CELL DISTRIBUTION WIDTH 16.3 % (11.6-14.6)
[2020-05-29 06:32] LABS: CHLORIDE 108 mEq/L (98-107)
[2020-05-29] MEDS: FAMOTIDINE 20MG TABLET PO SCH ×2 (08:22→20:30)
[2020-05-29] MEDS: CITALOPRAM HYDROBROMIDE 10MG TABLET PO SCH (08:22)
[2020-05-29 11:50] LABS: PLATELET ESTIMATE DECREASED
[2020-05-29] MEDS: TRAZODONE HCL 50MG TABLET PO SCH (20:30)
[2020-05-29 20:41] LABS: BASOPHILS % 0.5 % (0.0-2.0); EOSINOPHILS % 1.9 % (0.0-5.0); HEMATOCRIT. 42.1 % (42.0-52.0); HEMOGLOBIN. 13.9 g/dL (14.0-18.0); LYMPHOCYTES % 14.4 % (20.0-50.0); MEAN CORPUSCULAR HEMOGLOBIN 26.9 pg (28.0-32.0); MEAN CORPUSCULAR VOLUME 81.5 fL (80.0-94.0); MEAN PLATELET VOLUME 11.9 fl (7.4-10.4); MONOCYTES % 5.6 % (2.0-8.0); NEUTROPHILS % 77.6 % (40.0-76.0); PLATELET 93 x1000/uL (130-400); RED BLOOD CELL COUNT 5.17 mill/uL (4.7-6.1); RED CELL DISTRIBUTION WIDTH 16.3 % (11.6-14.6)
[2020-05-30] VITALS (20 sets, daily range): BP systolic 121–159; BP diastolic 66–136
[2020-05-30] MEDS: HEPARIN 25,000 UNITS PREMIX 250 ML IV SCH ×2 (01:11→18:08)
[2020-05-30] MEDS: IPRATROPIUM BROMIDE (0.02%) 0.5MG/2.5ML NEB HHN SCH ×4 (01:56→21:22)
[2020-05-30 06:45] LABS: BASOPHILS % 0.5 % (0.0-2.0); EOSINOPHILS % 2.5 % (0.0-5.0); HEMATOCRIT. 43.5 % (42.0-52.0); HEMOGLOBIN. 14.4 g/dL (14.0-18.0); LYMPHOCYTES % 15.6 % (20.0-50.0); MEAN CORPUSCULAR HEMOGLOBIN 27.2 pg (28.0-32.0); MEAN CORPUSCULAR VOLUME 82.2 fL (80.0-94.0); NEUTROPHILS % 74.4 % (40.0-76.0); RED CELL DISTRIBUTION WIDTH 16.1 % (11.6-14.6)
[2020-05-30] MEDS: CITALOPRAM HYDROBROMIDE 10MG TABLET PO SCH (08:36)
[2020-05-30] MEDS: PANTOPRAZOLE 40MG DR TABLET PO SCH (08:36)
[2020-05-30 10:25] LABS: PLATELET 77 x1000/uL (130-400)
[2020-05-30] MEDS: TRAZODONE HCL 50MG TABLET PO SCH (21:24)
[2020-05-31] VITALS (12 sets, daily range): BP systolic 112–162; BP diastolic 56–114
[2020-05-31] MEDS: IPRATROPIUM BROMIDE (0.02%) 0.5MG/2.5ML NEB HHN SCH ×4 (01:26→20:28)
[2020-05-31] MEDS: CITALOPRAM HYDROBROMIDE 10MG TABLET PO SCH (08:35)
[2020-05-31] MEDS: PANTOPRAZOLE 40MG DR TABLET PO SCH (08:36)
[2020-05-31 10:48] LABS: BASOPHILS % 0.5 % (0.0-2.0); EOSINOPHILS % 2.8 % (0.0-5.0); HEMOGLOBIN. 13.6 g/dL (14.0-18.0); LYMPHOCYTES % 16.6 % (20.0-50.0); MEAN CORPUSCULAR HEMOGLOBIN 27.1 pg (28.0-32.0); MEAN CORPUSCULAR VOLUME 81.8 fL (80.0-94.0); MONOCYTES % 9.6 % (2.0-8.0); NEUTROPHILS % 70.5 % (40.0-76.0); RED BLOOD CELL COUNT 5.01 mill/uL (4.7-6.1)
[2020-05-31 10:51] LABS: CHLORIDE 108 mEq/L (98-107)
[2020-05-31] MEDS: HEPARIN 25,000 UNITS PREMIX 250 ML IV SCH (11:32)
[2020-05-31 11:43] LABS: MEAN PLATELET VOLUME 11.9 fl (7.4-10.4); PLATELET 80 x1000/uL (130-400)
[2020-05-31] MEDS ORDERED: POTASSIUM CHLORIDE 20MEQ TABLET SR PO NR (11:45)
[2020-05-31] MEDS: TRAZODONE HCL 50MG TABLET PO SCH (21:39)
[2020-06-01] VITALS (15 sets, daily range): BP systolic 112–153; BP diastolic 82–110
[2020-06-01] MEDS: METOPROLOL TARTRATE 25MG TABLET PO SCH ×3 (00:12→21:31)
[2020-06-01] MEDS: HEPARIN 25,000 UNITS PREMIX 250 ML IV SCH ×2 (01:22→16:01)
[2020-06-01] MEDS: IPRATROPIUM BROMIDE (0.02%) 0.5MG/2.5ML NEB HHN SCH ×4 (02:13→20:13)
[2020-06-01] MEDS: PANTOPRAZOLE 40MG DR TABLET PO SCH (06:22)
[2020-06-01] MEDS: CITALOPRAM HYDROBROMIDE 10MG TABLET PO SCH (08:53)
[2020-06-01] MEDS: TRAZODONE HCL 50MG TABLET PO SCH (21:30)
[2020-06-02] VITALS: BP 152/98
[2020-06-02] MEDS: IPRATROPIUM BROMIDE (0.02%) 0.5MG/2.5ML NEB HHN SCH (01:03)
[2020-06-02 02:00] VITALS: BP 133/92
== END 2020-06-02 03:49 | disposition short-term general hospital (02) | DRG 134 ==
LOC: ER 15:53 → 5EST 19:42 → ENRESERV 20:03 → CVICU 05-27 18:41 → 3WST 05-31 17:48
PROVIDERS: ADMIT Internal Medicine; ATTEND Internal Medicine
DX: I26.92 Saddle embolus of pulmonary artery without acute cor pulmonale (principal); I21.4 Non-ST elevation (NSTEMI) myocardial infarction; I10 Essential (primary) hypertension; E44.1 Mild protein-calorie malnutrition; E87.8 Other disorders of electrolyte and fluid balance, not elsewhere classified; F10.20 Alcohol dependence, uncomplicated; D69.6 Thrombocytopenia, unspecified; J96.00 Acute respiratory failure, unspecified whether with hypoxia or hypercapnia; J45.909 Unspecified asthma, uncomplicated; F12.90 Cannabis use, unspecified, uncomplicated; R26.9 Unspecified abnormalities of gait and mobility; T50.905A Adverse effect of unspecified drugs, medicaments and biological substances, initial encounter; Z20.828 Contact with and (suspected) exposure to other viral communicable diseases; F20.9 Schizophrenia, unspecified; F31.9 Bipolar disorder, unspecified; K76.0 Fatty (change of) liver, not elsewhere classified; Z82.5 Family history of asthma and other chronic lower respiratory diseases; Z79.899 Other long term (current) drug therapy; Z71.41 Alcohol abuse counseling and surveillance of alcoholic; Y92.89 Other specified places as the place of occurrence of the external cause; Z68.25 Body mass index [BMI] 25.0-25.9, adult; D68.69 Other thrombophilia
CPT/HCPCS: 36415; 71275; 80048; 80053; 80305; 81003; 83880; 84484; 85025; 85027; 85049; 85384; 86022; 87635; 93005; 93306; 93970; 94640; 99291; J1644; J2270; J7030; Q9967

== ENCOUNTER 2020-06-26 18:37 | Emergency (ER) | payer MEDICAID ==
[~2020-06-26] VITALS: Ht 172.7 cm; Wt 91.0 kg
[2020-06-26 20:12] LABS: BASOPHILS % 1.2 % (0.0-2.0); EOSINOPHILS % 3.2 % (0.0-5.0); HEMATOCRIT. 43.9 % (42.0-52.0); HEMOGLOBIN. 14.4 g/dL (14.0-18.0); LYMPHOCYTES % 25.6 % (20.0-50.0); MEAN CORPUSCULAR HEMOGLOBIN 26.7 pg (28.0-32.0); MEAN CORPUSCULAR VOLUME 81.4 fL (80.0-94.0); MEAN PLATELET VOLUME 10.1 fl (7.4-10.4); MONOCYTES % 7.7 % (2.0-8.0); NEUTROPHILS % 62.3 % (40.0-76.0); PLATELET 124 x1000/uL (130-400); RED BLOOD CELL COUNT 5.39 mill/uL (4.7-6.1); RED CELL DISTRIBUTION WIDTH 15.9 % (11.6-14.6)
[2020-06-26 20:24] LABS: CHLORIDE 108 mEq/L (98-107)
[2020-06-26 20:28] LABS: ETHANOL BLOOD 268 mg/dL
[2020-06-26 20:31] LABS: *AMPHETAMINES SCREEN URINE NEGATIVE (NEGATIVE); *BARBITURATES SCREEN URINE NEGATIVE (NEGATIVE); *BENZODIAZEPINES SCREEN URINE NEGATIVE (NEGATIVE); *COCAINE SCREEN URINE NEGATIVE (NEGATIVE); METHADONE URINE SCREEN NEGATIVE (NEGATIVE); OPIATES URINE SCREEN NEGATIVE (NEGATIVE); PHENCYCLIDINE URINE SCREEN NEGATIVE (NEGATIVE)
[2020-06-26 20:32] LABS: CANNABINOID URINE SCREEN NEGATIVE (NEGATIVE)
[2020-06-27 11:06] LABS: CLARITY URINE CLEAR (CLEAR); COLOR URINE YELLOW (YELLOW); KETONES URINE 1+ (NEGATIVE); LEUKOCYTE ESTERASE URINE NEGATIVE (NEGATIVE); NITRITE URINE NEGATIVE (NEGATIVE); OCCULT BLOOD URINE NEGATIVE (NEGATIVE); PROTEIN URINE NEGATIVE (NEGATIVE); SPECIFIC GRAVITY URINE 1.018 (1.005-1.030); UROBILINOGEN URINE 0.2 E.U./dL (0.2-1.0)
[2020-06-27] MEDS ORDERED: ACETAMINOPHEN 325MG TABLET PO ONE (12:15)
[2020-06-27] MEDS: CITALOPRAM HYDROBROMIDE 10MG TABLET PO SCH (12:18)
[2020-06-27] MEDS: TRAZODONE HCL 50MG TABLET PO SCH (22:56)
[2020-06-28] MEDS ORDERED: APIXABAN 2.5 MG TABLET PO SCH ×2 (10:15→10:30)
[2020-06-28] MEDS ORDERED: ACETAMINOPHEN 325MG TABLET PO ONE (10:15)
[2020-06-28] MEDS ORDERED: APIXABAN 5 MG TABLET PO SCH (18:00)
[2020-06-28] MEDS: CITALOPRAM HYDROBROMIDE 10MG TABLET PO SCH (22:09)
[2020-06-28] MEDS: TRAZODONE HCL 50MG TABLET PO SCH (22:09)
[2020-06-29 07:45] VITALS: BP 128/76
== END 2020-06-29 10:15 | disposition short-term general hospital (02) ==
LOC: ER 18:37
DX: U07.1 COVID-19 (principal); F32.9 Major depressive disorder, single episode, unspecified; R45.851 Suicidal ideations; F10.229 Alcohol dependence with intoxication, unspecified; Y90.8 Blood alcohol level of 240 mg/100 ml or more; J45.909 Unspecified asthma, uncomplicated; Z75.1 Person awaiting admission to adequate facility elsewhere; Z79.899 Other long term (current) drug therapy; Z87.891 Personal history of nicotine dependence
CPT/HCPCS: 36415; 80053; 80305; 80320; 85025; 93005; 99285; G0480

== ENCOUNTER 2021-01-01 19:17 | Emergency (ER) | payer MEDICAID ==
[~2021-01-01] VITALS: Ht 182.9 cm; Wt 90.0 kg
[2021-01-01] MEDS ORDERED: OLANZAPINE 10 MG/VIAL IM STA (21:40)
[2021-01-01] MEDS ORDERED: SODIUM CHLORIDE 0.9% 1,000 ML IV ONE (21:45)
[2021-01-01] MEDS ORDERED: LORAZEPAM 2MG/ML CPJ IM ONE (21:45)
[2021-01-01] MEDS ORDERED: DIPHENHYDRAMINE 50MG/ML VIAL IM ONE (22:00)
[2021-01-01 22:31] LABS: EOSINOPHILS % 1.5 % (0.0-5.0); HEMATOCRIT. 46.5 % (42.0-52.0); HEMOGLOBIN. 15.9 g/dL (14.0-18.0); LYMPHOCYTES % 36.5 % (20.0-50.0); MEAN CORPUSCULAR HEMOGLOBIN 27.4 pg (28.0-32.0); MEAN CORPUSCULAR VOLUME 80.2 fL (80.0-94.0); MEAN PLATELET VOLUME 9.7 fl (7.4-10.4); MONOCYTES % 4.8 % (2.0-8.0); NEUTROPHILS % 56.2 % (40.0-76.0); PLATELET 193 x1000/uL (130-400); RED CELL DISTRIBUTION WIDTH 15.6 % (11.6-14.6)
[2021-01-01 22:36] LABS: CHLORIDE 110 mEq/L (98-107)
[2021-01-01 23:00] LABS: CLARITY URINE CLEAR (CLEAR); COLOR URINE YELLOW (YELLOW); KETONES URINE NEGATIVE (NEGATIVE); LEUKOCYTE ESTERASE URINE NEGATIVE (NEGATIVE); NITRITE URINE NEGATIVE (NEGATIVE); OCCULT BLOOD URINE NEGATIVE (NEGATIVE); PROTEIN URINE 1+ (NEGATIVE); UROBILINOGEN URINE 0.2 E.U./dL (0.2-1.0)
[2021-01-01 23:02] LABS: ETHANOL BLOOD 408 mg/dL
[2021-01-01] MEDS ORDERED: ONDANSETRON HCL 4MG/2ML INJ IV NR (23:15)
[2021-01-01 23:27] LABS: *AMPHETAMINES SCREEN URINE NEGATIVE (NEGATIVE); *BARBITURATES SCREEN URINE NEGATIVE (NEGATIVE); *BENZODIAZEPINES SCREEN URINE NEGATIVE (NEGATIVE); *COCAINE SCREEN URINE NEGATIVE (NEGATIVE); METHADONE URINE SCREEN NEGATIVE (NEGATIVE); OPIATES URINE SCREEN NEGATIVE (NEGATIVE)
[2021-01-01 23:28] LABS: CANNABINOID URINE SCREEN PRESUMTIVE POSITIVE (NEGATIVE); PHENCYCLIDINE URINE SCREEN NEGATIVE (NEGATIVE)
[2021-01-02 06:00] VITALS: BP 108/78
== END 2021-01-02 11:30 | disposition home or self-care (01) ==
LOC: ER 19:17
DX: F10.129 Alcohol abuse with intoxication, unspecified (principal); F31.89 Other bipolar disorder; F12.10 Cannabis abuse, uncomplicated; Y90.8 Blood alcohol level of 240 mg/100 ml or more; J45.909 Unspecified asthma, uncomplicated; Z20.822 Contact with and (suspected) exposure to COVID-19; Z78.1 Physical restraint status
CPT/HCPCS: 36415; 80053; 80305; 80307; 80320; 80329; 81003; 85025; 87426; 96361; 96372; 96374; 99285; J1200; J2060; J2405; J3490; J7030; Z7610; G0480

== ENCOUNTER 2022-04-08 12:14 | Emergency (ER) | payer MEDICAID ==
[~2022-04-08] VITALS: Ht 185.4 cm; Wt 82.0 kg
[2022-04-08 13:06] LABS: EOSINOPHILS % 0.4 % (0.0-5.0); HEMATOCRIT. 42.9 % (42.0-52.0); HEMOGLOBIN. 14.2 g/dL (14.0-18.0); LYMPHOCYTES % 22.6 % (20.0-50.0); MEAN CORPUSCULAR HEMOGLOBIN 27.1 pg (28.0-32.0); MEAN CORPUSCULAR VOLUME 81.7 fL (80.0-94.0); MEAN PLATELET VOLUME 9.2 fl (7.4-10.4); MONOCYTES % 9.9 % (2.0-8.0); NEUTROPHILS % 66.1 % (40.0-76.0); PLATELET 145 x1000/uL (130-400); RED BLOOD CELL COUNT 5.25 mill/uL (4.7-6.1); RED CELL DISTRIBUTION WIDTH 17.4 % (11.6-14.6)
[2022-04-08 13:13] LABS: CLARITY URINE CLEAR (CLEAR); COLOR URINE YELLOW (YELLOW); KETONES URINE 3+ (NEGATIVE); LEUKOCYTE ESTERASE URINE NEGATIVE (NEGATIVE); NITRITE URINE NEGATIVE (NEGATIVE); OCCULT BLOOD URINE NEGATIVE (NEGATIVE); PH URINE 5.5 (4.5-8.0); PROTEIN URINE TRACE (NEGATIVE); SPECIFIC GRAVITY URINE 1.013 (1.005-1.030)
[2022-04-08 13:14] LABS: CHLORIDE 95 mEq/L (98-107)
[2022-04-08 13:27] LABS: *AMPHETAMINES SCREEN URINE NEGATIVE (NEGATIVE); *BARBITURATES SCREEN URINE NEGATIVE (NEGATIVE); *BENZODIAZEPINES SCREEN URINE NEGATIVE (NEGATIVE); *COCAINE SCREEN URINE NEGATIVE (NEGATIVE); CANNABINOID URINE SCREEN NEGATIVE (NEGATIVE); METHADONE URINE SCREEN NEGATIVE (NEGATIVE); OPIATES URINE SCREEN NEGATIVE (NEGATIVE); PHENCYCLIDINE URINE SCREEN NEGATIVE (NEGATIVE)
[2022-04-08] MEDS ORDERED: POTASSIUM CHLORIDE 20MEQ TABLET SR PO NR (13:30)
[2022-04-08 13:45] LABS: ETHANOL BLOOD 379 mg/dL
[2022-04-08] MEDS ORDERED: LORAZEPAM 0.5MG TABLET PO ONE (20:00)
[2022-04-09] MEDS ORDERED: LORAZEPAM 1MG TABLET PO ONE (00:30)
[2022-04-09] MEDS ORDERED: ONDANSETRON 4MG ODT PO ONE (03:30)
[2022-04-09] MEDS: RISPERIDONE 1MG TABLET PO SCH (21:55)
[2022-04-09] MEDS: TRAZODONE HCL 50MG TABLET PO SCH (21:55)
[2022-04-10] MEDS ORDERED: CITALOPRAM HYDROBROMIDE 10MG TABLET PO SCH (09:00)
[2022-04-10] MEDS: RISPERIDONE 1MG TABLET PO SCH ×2 (09:42→21:00)
[2022-04-10] MEDS ORDERED: LORAZEPAM 1MG TABLET PO ONE (19:15)
[2022-04-10] MEDS: TRAZODONE HCL 50MG TABLET PO SCH (21:00)
[2022-04-11 11:30] VITALS: BP 134/84
== END 2022-04-11 12:46 | disposition home or self-care (01) ==
LOC: ER 12:38
DX: F32.9 Major depressive disorder, single episode, unspecified (principal); U07.1 COVID-19; F10.129 Alcohol abuse with intoxication, unspecified; E87.8 Other disorders of electrolyte and fluid balance, not elsewhere classified; R94.5 Abnormal results of liver function studies; R45.851 Suicidal ideations; Y90.8 Blood alcohol level of 240 mg/100 ml or more; J45.909 Unspecified asthma, uncomplicated; Z75.1 Person awaiting admission to adequate facility elsewhere
CPT/HCPCS: 36415; 80053; 80305; 80320; 81003; 82962; 85025; 99285; C9803; Q0162; U0003; U0005; G0480

== ENCOUNTER 2022-05-05 16:51 | Emergency (ER) | payer MEDICAID ==
[~2022-05-05] VITALS: Ht 182.9 cm; Wt 85.0 kg
[2022-05-05 16:53] VITALS: BP 118/72
== END 2022-05-05 19:12 | disposition left against medical advice (07) ==
LOC: ER 16:51
DX: F10.229 Alcohol dependence with intoxication, unspecified (principal); F31.9 Bipolar disorder, unspecified; J45.909 Unspecified asthma, uncomplicated; Z86.711 Personal history of pulmonary embolism; Z79.01 Long term (current) use of anticoagulants; Y90.9 Presence of alcohol in blood, level not specified
CPT/HCPCS: 99283

== ENCOUNTER 2022-05-24 06:05 | Emergency (ER) | payer MEDICAID ==
[~2022-05-24] VITALS: Ht 180.3 cm; Wt 82.0 kg
[2022-05-24] MEDS ORDERED: IPRATROPIUM/ALBUTEROL 0.5-3(2.5)MG/3ML NEB HHN ONE (06:30)
[2022-05-24] MEDS ORDERED: PREDNISONE 20MG TABLET PO ONE (06:30)
[2022-05-24] MEDS ORDERED: ALBU6.7H9 INH (07:35)
[2022-05-24] MEDS ORDERED: PRED10TA MT (07:35)
[2022-05-24 07:50] VITALS: BP 166/84
== END 2022-05-24 07:51 | disposition home or self-care (01) ==
LOC: ER 06:05
DX: J45.901 Unspecified asthma with (acute) exacerbation (principal); R03.0 Elevated blood-pressure reading, without diagnosis of hypertension; F31.9 Bipolar disorder, unspecified
CPT/HCPCS: 94640; 99283; J7512; Z7610

== ENCOUNTER 2022-07-31 07:09 | Emergency (ER) | payer OTHER ==
[~2022-07-31] VITALS: Ht 177.8 cm; Wt 86.0 kg
[~2022-07-31 07:09] MED LIST changes: +ALBU6.7H3 INH; +PRED10TA MT
[2022-07-31] MEDS ORDERED: PREDNISONE 20MG TABLET PO ONE (08:15)
[2022-07-31] MEDS ORDERED: BECL10.62 INH (12:19)
[2022-07-31] MEDS ORDERED: ALBU6.7H15 INH (12:19)
[2022-07-31] MEDS ORDERED: P50 MT (12:19)
[2022-07-31 13:03] VITALS: BP 160/109
== END 2022-07-31 13:15 | disposition home or self-care (01) ==
LOC: ER 07:09
DX: J45.901 Unspecified asthma with (acute) exacerbation (principal)
CPT/HCPCS: 93005; 99285; J7512